=== PATIENT | female | born 1965 | race Caucasian/White ===

== ENCOUNTER 2020-02-15 06:31 | Emergency (ER) | payer MEDICARE, MEDICAID, SELFPAY ==
[2020-02-15 07:05] VITALS: BP 100/54; PULSE 70; RESP 16; TEMP 36.6; O2SAT 98; BMI 33.3
--- NOTE | 2020-02-15 07:06 | ED_ITS ---
HPI - General Adult General Chief complaint: Abdominal Pain Stated complaint: Abd pain Time Seen by Provider: 02/15/20 06:59 Source: patient Mode of arrival: ambulatory Limitations: no limitations History of Present Illness HPI narrative: patient comes to the emergency room complaining of abdominal pain for 2 weeks. Patient states she was seen yesterday at [place], patient states that she was told that her uterus is inflamed and is pushing all the way up her ribs . Patient states the worst pain is located at the left upper quadrant and left ribs. MD complaint: abdominal pain Related Data Previous Rx's Medication Instructions Recorded polyethylene glycol 3350 [Miralax] 17 g PO BID #119 g 02/15/20 Allergies Allergy/AdvReac Type Severity Reaction Status Date / Time fentanyl [FENTANYL] Allergy Unknown MIGRAINES Verified 02/15/20 07:30 ondansetron [From ZOFRAN] Allergy Unknown MAKES HER Verified 02/15/20 07:30 SICK oxycodone [From OxyContin] Allergy Unknown UNKNOWN Verified 02/15/20 07:30 Penicillins [PENICILLINS] Allergy Unknown RASH Verified 02/15/20 07:30 zolpidem [From AMBIEN] Allergy Unknown CAUSES Verified 02/15/20 07:30 HYPOTENSION Review of Systems Review of Systems: Constitutional : No Weight loss, No Fever, No Chills, No Night Sweats, No Fatigue, No Malaise ENT/Mouth : No Hearing loss, No Ear Pain, No Nasal Congestion, No Sinus Pain, No Hoarseness, No sore throat, No Rhinorrhea, No Swallowing Difficulty Eyes: No Eye Pain, No Swelling, No Redness, No Foreign Body, No Discharge, No Vision Changes Cardiovascular : No Chest Pain, No SOB, No Dyspnea on Exertion, No Orthopnea, No Edema, No Palpitations Respiratory : No Cough, No Sputum, No Wheezing, No Smoke Exposure, No Dyspnea Gastrointestinal : No Nausea, No Vomiting, No Diarrhea, No Constipation, right upper quadrant pain Genitourinary : no irregular bleeding, No Dysuria, No Urinary Frequency, No Hematuria, No Urinary Incontinence, No Urgency, No Flank Pain, No Urinary Flow Changes, No Hesitancy, states recently diagnosed with inflamed uterus Musculoskeletal : No joint pain, No Myalgias, No Joint Swelling Skin : No Skin Lesions, No rash Neuro : No Weakness, No Numbness, No Paresthesias, No Loss of Consciousness, No Dizziness, No Headache Psych : No Anxiety/Panic, No Depression, No SI/HI/AH/VH, No Social Issues, Heme/Lymph: No Bruising, No Bleeding,No Lymphadenopathy Endocrine : No Polyuria, No Polydipsia, No Temperature Intolerance [facility] Past Medical History Attestation statement: The following information was validated with the patient. Surgical History (Updated 02/15/20 @ 07:09 by Radha Dixon MD) History of left oophorectomy Hx of cholecystectomy Social History Social History Alcohol intake: never Smoking Status: Current every day smoker Use of substances other than those prescribed or required for medical reasons: No Advance Directives: Yes Advance Directives Information Provided: Yes Advance Directives on File: No Physical Exam Vital Signs: Vital Signs: Vital Signs Temp Pulse Resp BP Pulse Ox 02/15/20 08:32 16 02/15/20 07:48 66 16 113/68 02/15/20 07:05 97.8 F 70 16 100/54 L 98 Body Mass Index 33.3 Appearance: Alert. Oriented X3. No acute distress, anxious Eyes: Pupils equal, round and reactive to light. ENT: Pharynx normal. Neck: Normal inspection. Neck supple. No lymph nodes noted. No crepitus CVS: Normal heart rate and rhythm. Pulses normal. Normal S1 and S2 Respiratory: No respiratory distress. Breath sounds normal. No Wheezing. No rales Abdomen: Soft and tenderness in left flank, right upper quadrant, no pain on palpation over the bilateral lower quadrants or suprapubic tenderness Skin: Skin warm and dry. Normal skin color. Normal skin turgor. Extremities: No lower extremity edema. No lower extremity edema. No Lacerations. No Rash Neuro: Oriented X 3. No motor deficit. No sensory deficit. Moving all extermities. No slurred speech. Course Course Course Narrative: Patient states that she feels better, no longer having abdominal pain. I requested records from [facility], patient's CT scan from yesterday showed redundant colon with accessory loops in the right upper and lower quadrants containing a large amount of fecal material. CT scan of today showed a large amount of stool again. Medical Decision Making MDM Narrative Medical decision making narrative: patient's abdominal pain likely secondary to significant constipation. Lab Data Result diagrams: 02/15/20 07:44 02/15/20 07:44 Labs: Lab Results 02/15/20 02/15/20 02/15/20 Range/Units 07:44 07:44 08:36 WBC 9.7 (4.8-10.8) X10*3/uL RBC 4.42 (4.20-5.50) X10*6/uL Hgb 13.8 (12.0-16.0) g/dl Hct 42.1 (37-47) % MCV 95.2 (80-98) fL MCH 31.2 (27.0-33.0) pg MCHC 32.8 (31.0-35.0) g/dl RDW 14.1 (11.0-16.0) % Plt Count 200 (160-400) X10*3/uL MPV 9.7 (9.4-12.3) fL Immature Gran % (Auto) 0.9 H (0.0-0.4) % Neut % (Auto) 54.3 (45-73) % Lymph % (Auto) 36.9 (20-40) % [place] % (Auto) 6.4 (2-11) % Eos % (Auto) 1.1 (0-4) % Baso % (Auto) 0.4 (0-2) % Lymph # (Auto) 3.6 (1.2-4.9) X10*3/uL [place] # (Auto) 0.6 (0.1-1.2) X10*3/uL Eos # (Auto) 0.1 (0.0-0.4) X10*3/uL Baso # (Auto) 0.0 (0.0-0.2) X10*3/uL Abs Immat Gran (auto) 0.09 H (0.00-0.03) X10*3/uL Absolute Neuts (auto) 5.3 (2.0-8.3) X10*3/uL Absolute Nucleated RBC 0.000 (0.0-0.012) X10*3/uL Nucleated RBC % (auto) 0.0 (0.0-0.2) /100WBC Sodium 140 (135-145) mmol/L Potassium 4.4 (3.3-5.1) mmol/l Chloride 103 (96-108) mmol/L Carbon Dioxide 30 H (22-29) mmol/L Anion Gap 11 L (12-20) BUN 14 (9-16) mg/dL Creatinine 0.77 (0.5-1.4) mg/dL Estim Creat Clear Calc 94.0 Estimated GFR > 60 Random Glucose 84 (60-115) mg/dL Calcium 8.4 (8.4-10.2) mg/dL Total Bilirubin 0.3 (0.0-1.0) mg/dL Direct Bilirubin < 0.2 (0.0-0.5) mg/dL AST 18 (5-31) U/L ALT 21 (0-31) U/L Alkaline Phosphatase 70 (39-117) U/L Total Protein 6.1 L (6.5-8.0) g/dL Albumin 3.8 (3.5-5.0) g/dL Lipase 50 (8-78) U/L Urine Color YELLOW Urine Appearance CLEAR Urine pH 5.5 (5.0-8.0) Ur Specific [place] <= 1.005 (1.005-1.025) Urine Protein NEG (NEG-TRACE) MG/DL Urine Glucose (UA) NEG (NEG) MG/DL Urine Ketones NEG (NEG) MG/DL Urine Blood NEG (NEG) Urine Nitrite NEG (NEG) Ur Leukocyte Esterase NEG (NEG) Imaging Data CT of the abdomen: Radiologist's impression: Small nonobstructing right renal stone. Small bilateral renal cysts. Post cholecystectomy. Mild dilatation of the common bile duct. This may be normal postcholecystectomy. This could be correlated with liver function tests. Abnormal location of the cecum in the left mid abdomen. Question wall thickening of the distal stomach versus changes due to contraction/peristalsis. Discharge Plan Discharge Clinical Impression: Abdominal pain Qualifiers: Abdominal location: generalized Qualified Code(s): R10.84 - Generalized abdominal pain Constipation Qualifiers: Constipation type: unspecified constipation type Qualified Code(s): K59.00 - Constipation, unspecified Patient Disposition: Home, Self-Care Instructions: Constipation (ED), Abdominal Pain (ED) Additional Instructions: Please follow-up with your primary care physician tomorrow. If you have any worsening or new symptoms, please return to the emergency room or call 911 Prescriptions: New polyethylene glycol 3350 [Miralax] 17 gram/dose powder 17 g PO BID Qty: 119 RF: 0
--- NOTE | 2020-02-15 07:07 | CT_ITS ---
EXAMINATION: CT ABDOMEN AND PELVIS WITH CONTRAST CLINICAL INFORMATION: Abdominal pain COMPARISON: None TECHNIQUE: Multidetector volumetric images were obtained from the superior aspect of the liver through the pubic symphysis following administration 85 mL of Omnipaque 350 intravenous contrast. Sagittal and coronal reformatted images were obtained on the technologist's workstation. Oral contrast: Yes This CT examination was performed using dose optimization techniques as appropriate, variously including the following: *Automated exposure control *Adjustment of mA and/or kV according to patient size (this includes techniques or standardized protocols for targeted exams where dose is matched to indication/reason for exam; i.e. extremities or head) *Use of iterative reconstruction technique DLP: 628 mGy-cm FINDINGS: LUNG BASES: The visualized lung bases are unremarkable. LIVER, GALLBLADDER, AND BILIARY TREE: The liver is normal in shape, and attenuation. The liver is enlarged, right lobe measuring 20 cm in length. No focal hepatic lesion or intrahepatic biliary duct dilatation. The gallbladder has been removed. There is mild dilatation of the common bile duct measuring up to 1.3 cm. PANCREAS: There is a small calcification in the head of the pancreas. The pancreas is otherwise unremarkable. SPLEEN: Unremarkable. ADRENAL GLANDS: Unremarkable. KIDNEYS AND URETERS: There is a 3 3 mm stone in the upper pole of the right kidney. There are small bilateral renal cysts. BLADDER: Unremarkable. GASTROINTESTINAL TRACT: The cecum is located in the left mid abdomen. Small and large bowel is otherwise unremarkable. The appendix is unremarkable. There is question of mild wall thickening of the distal stomach versus changes due to contraction/peristalsis.. ABDOMINAL WALL: There is diastasis of the rectus muscles. LYMPH NODES: Normal. VASCULAR: Unremarkable. PELVIC VISCERA: Unremarkable. OSSEOUS STRUCTURES: Unremarkable. CT/CT abdomen pelvis w con IMPRESSION: Small nonobstructing right renal stone. Small bilateral renal cysts. Post cholecystectomy. Mild dilatation of the common bile duct. This may be normal postcholecystectomy. This could be correlated with liver function tests. Abnormal location of the cecum in the left mid abdomen. Question wall thickening of the distal stomach versus changes due to contraction/peristalsis.
[2020-02-15] MEDS: Ketorolac Tromethamine 30 MG/ML VIAL IVPUSH (07:31)
[2020-02-15 07:48] VITALS: BP 113/68; PULSE 66; RESP 16
[2020-02-15 07:49] LABS: MANUAL DIFF FLAG NO
[2020-02-15 07:55] LABS: Basophils Percent Auto 0.4 % (0-2); Eosinophils Absolute Auto 0.1 X10*3/uL (0.0-0.4); Eosinophils Percent Auto 1.1 % (0-4); Hematocrit 42.1 % (37-47); Hemoglobin 13.8 g/dl (12.0-16.0); Imm Gran Abs Auto 0.09 X10*3/uL (0.00-0.03); Imm Gran Pct Auto 0.9 % (0.0-0.4); Lymphocytes Absolute Auto 3.6 X10*3/uL (1.2-4.9); Lymphocytes Percent Auto 36.9 % (20-40); Mean Corpuscular HGB Conc 32.8 g/dl (31.0-35.0); Mean Corpuscular Hemoglobin 31.2 pg (27.0-33.0); Mean Corpuscular Volume 95.2 fL (80-98); Mean Platelet Volume 9.7 fL (9.4-12.3); Monocytes Absolute Auto 0.6 X10*3/uL (0.1-1.2); Monocytes Percent Auto 6.4 % (2-11); Neutrophils Absolute Auto 5.3 X10*3/uL (2.0-8.3); Neutrophils Percent Auto 54.3 % (45-73); Platelet Count 200 X10*3/uL (160-400); Red Blood Count 4.42 X10*6/uL (4.20-5.50); Red Cell Distribution Width 14.1 % (11.0-16.0); White Blood Count 9.7 X10*3/uL (4.8-10.8)
[2020-02-15 08:31] LABS: Alanine Aminotransferase 21 U/L (0-31); Albumin Level 3.8 g/dL (3.5-5.0); Alkaline Phosphatase 70 U/L (39-117); Anion Gap 11 (12-20); Aspartate Amino Transferase 18 U/L (5-31); Bilirubin Direct < 0.2 mg/dL (0.0-0.5); Bilirubin Total 0.3 mg/dL (0.0-1.0); Blood Urea Nitrogen 14 mg/dL (9-16); Calcium 8.4 mg/dL (8.4-10.2); Carbon Dioxide 30 mmol/L (22-29); Chloride 103 mmol/L (96-108); Estimated Glomerular Filt Rate > 60; Glucose Random 84 mg/dL (60-115); Lipase 50 U/L (8-78); Potassium 4.4 mmol/l (3.3-5.1); Sodium 140 mmol/L (135-145); Total Protein 6.1 g/dL (6.5-8.0)
[2020-02-15 08:32] VITALS: RESP 16
[2020-02-15] MEDS: Morphine Sulfate 4 MG/ML CARTRIDGE IVPUSH (08:32)
[2020-02-15 08:53] LABS: Glucose Urine UA NEG (NEG); Leukocyte Esterase Urine NEG (NEG); Nitrite Urine NEG (NEG); PH 5.5 (5.0-8.0); Specific Gravity - Urine <= 1.005 (1.005-1.025); Urine Blood NEG (NEG); Urine Ketones NEG (NEG); Urine Protein NEG (NEG-TRACE)
[2020-02-15 08:54] LABS: Color Urine YELLOW
[2020-02-15 08:55] LABS: Appearance Urine CLEAR
[2020-02-15] MEDS: iohexoL 350 MG/ML 100 ML INFUS..BTL 85 ML IV (09:07)
[2020-02-15 10:00] VITALS: BP 120/57; PULSE 68; RESP 16; TEMP 36.7
== END 2020-02-15 10:52 | disposition home or self-care (01) ==
PROVIDERS: Emergency Provider Emergency Medicine; PCP Internal Medicine
DX: R10.12 Left upper quadrant pain (principal); K59.00 Constipation, unspecified; R10.84 Generalized abdominal pain; F17.200 Nicotine dependence, unspecified, uncomplicated; Z71.6 Tobacco abuse counseling
CPT/HCPCS: 36415; 74177; 80048; 80076; 81003; 83690; 85025; 96374; 96375; 99284; J1885; J2270

== ENCOUNTER 2020-05-09 11:43 | Emergency (ER) | payer MEDICARE, MEDICAID, SELFPAY ==
[2020-05-09 11:57] VITALS: BP 114/67; BP 115/66; PULSE 69; PULSE 75; RESP 18; TEMP 36.6; O2SAT 96; O2SAT 97; BMI 33.3
--- NOTE | 2020-05-09 12:05 | XR_ITS ---
EXAMINATION: XR RIBS, RIGHT CLINICAL INFORMATION: Rib pain COMPARISON: None TECHNIQUE: Frontal view of the chest and 3 views right ribs are obtained for a total of 4 views. FINDINGS: There are mildly displaced fractures right lateral fifth and sixth ribs with associated smooth pleural reaction. No bony destructive process. There is no pneumothorax. No airspace consolidation or effusion. The cardiac and hilar and mediastinal contours are unremarkable. XR/XR ribs RT min 3V w CXR1V IMPRESSION: 1. Mildly displaced fractures right lateral fifth and sixth ribs with smooth pleural reaction. 2. No pneumothorax, airspace consolidation, or effusion.
[2020-05-09] MEDS: Morphine Sulfate 2 MG/ML CARTRIDGE IVPUSH (13:15)
[2020-05-09 13:16] VITALS: BP 128/52; PULSE 64; RESP 18; O2SAT 99
--- NOTE | 2020-05-09 13:17 | PC.NURSE ---
GRIMACING AND CRYING WITH ALL MOVEMENT. PT HAS SHALLOW RESP AND FEEBLE COUGH D/T PAIN. PNEUMONIA PREVENTION COVERED. LS CTA. SKIN PWD. NO BRUISING NOTED ON ARMS AND THORAX. STEADY ON FEET. DENIES HARMFUL ENVIRONEMNT AT HOME.
--- NOTE | 2020-05-09 13:35 | PC.NURSE ---
pt calming. morphine having good effect. resp remains shallow.
--- NOTE | 2020-05-09 13:55 | ED.GENADULT ---
HPI - General Adult General Chief complaint: General Medical Stated complaint: R RIB PAIN,NO INJURY Time Seen by Provider: 05/09/20 12:38 Source: patient Mode of arrival: ambulatory History of Present Illness HPI narrative: 54-year-old female with a past medical history of cholecystectomy, oophorectomy, previous left sided rib fracture presenting to the ED from PCPs office for right-sided rib pain x1 week. Patient denies known falls, trauma, injury. Reports pain with movement and deep breathing. Reports mild shortness of breath secondary to pain. Denies fever, chills, cough, LE edema, history blood clots Onset (ago): week(s) Related Data Previous Rx's Medication Instructions Recorded polyethylene glycol 3350 [Miralax] 17 g PO BID #119 g 02/15/20 acetaminophen-codeine 1 tab PO Q8H PRN 3 Days #9 tab 05/09/20 lidocaine [Lidoderm] 1 patch TOPICAL DAILY PRN #30 ea 05/09/20 MDD remove after 12 hours naproxen 500 mg PO BID PRN 10 Days #20 tab 05/09/20 Allergies Allergy/AdvReac Type Severity Reaction Status Date / Time fentanyl [FENTANYL] Allergy Unknown MIGRAINES Verified 02/15/20 07:30 ondansetron [From ZOFRAN] Allergy Unknown MAKES HER Verified 02/15/20 07:30 SICK oxycodone [From OxyContin] Allergy Unknown UNKNOWN Verified 02/15/20 07:30 Penicillins [PENICILLINS] Allergy Unknown RASH Verified 02/15/20 07:30 zolpidem [From AMBIEN] Allergy Unknown CAUSES Verified 02/15/20 07:30 HYPOTENSION Review of Systems Review of Systems: Constitutional: No Weight loss, No Fever, No Chills Cardiovascular: + Chest wall Pain, + SOB, no edema, no palpitations Respiratory: No Cough, No Sputum, No Wheezing Gastrointestinal: No Nausea, No Vomiting, No Diarrhea, No Constipation, No Abdominal pain Musculoskeletal: No joint pain, No Myalgias, No Joint Swelling Skin: No Skin Lesions, No rash Neuro: No Weakness, No Numbness, No Paresthesias Yes all other systems are reviewed and are negative PMFSH Past Medical History Attestation statement: The following information was validated with the patient. Surgical History History of left oophorectomy Hx of cholecystectomy Social History Social History Alcohol intake: never Smoking Status: Current every day smoker Use of substances other than those prescribed or required for medical reasons: No Advance Directives: No Advance Directives Information Provided: Yes Physical Exam Vital Signs: Vital Signs: Last Vital Signs Temp 97.9 F 05/09/20 11:57 Pulse 64 05/09/20 13:16 Resp 18 05/09/20 13:16 BP 128/52 L 05/09/20 13:16 Pulse Ox 99 05/09/20 13:16 Body Mass Index 33.3 Const: Other: In pain General: healthy appearing Orientation/consciousness: patient oriented x3 Limitations: no limitations HENMT: Head: Yes normal to inspection Ears: hearing grossly normal bilaterally General nose exam: Normal external nose present Face and sinus: Yes normal facial exam Eyes: General: appearance normal, both eyes and all related structures EOM: EOMs intact bilaterally Neck: Neck: Yes normal visual inspection Chest: Other: Tenderness to palpation diffusely over right-sided anteriorolateral and posterior ribs Chest palpation & inspection: normal inspection of the chest, no crepitus and tenderness Resp: Effort & Inspection: normal respiratory effort and no stridor Auscultation: clear to auscultation bilaterally, no crackles, no rales, no rhonchi and no wheezes Cardio: Rate: regular rate Heart sounds: S1 normal heart sound present and S2 normal heart sound present GI: Inspection: Yes normal to inspection Palpation (GI): Soft to palpation, nontender, no guarding and not rigid Skin: Rashes: no rashes Wounds: no wounds Neuro: General: patient oriented x3 Extrem: General: Yes normal to inspection Course Course Course Narrative: XR ribs RT min 3V w CXR1V IMPRESSION: 1. Mildly displaced fractures right lateral fifth and sixth ribs with smooth pleural reaction. 2. No pneumothorax, airspace consolidation, or effusion >> patient's pain likely from 2 rib fractures a rather than PE. Had lengthy discussion with patient pertaining to safety/abuse or EtOH/ substance abuse and falls, all of which she denies, denies known reason why she has rib fractures. Discussed with patient she needs close follow-up with her primary care doctor, and can always return to the emergency department. She verbalized understanding feel safe for discharge home Medical Decision Making MDM Narrative Medical decision making narrative: 54-year-old female with a past medical history of cholecystectomy, oophorectomy, previous left sided rib fracture presenting to the ED from PCPs office for right-sided rib pain x1 week. On exam VSS, NAD/nontoxic-appearing, rib tenderness elicited on exam. Concern for fracture vs costochondritis vs ?PNA or PE. Lower concern for ACS Plan: Initial x-rays, labs if unremarkable Discharge Plan Discharge Clinical Impression: Multiple rib fractures Qualifiers: Encounter type: subsequent encounter Fracture type: closed Laterality: right Fracture healing: with routine healing Qualified Code(s): S22.41XD - Multiple fractures of ribs, right side, subsequent encounter for fracture with routine healing Patient Disposition: Home, Self-Care Instructions: Rib Fracture (ED) Additional Instructions: You have a right 5th and 6th rib fracture Naproxen as an anti-inflammatory/pain medication, take with food No Lidoderm patches or numbing patches, apply to the painful area Tylenol with codeine is an opiate pain medication, take only when pain is severe for the next 3 days You need to have close follow-up with her primary care doctor Do not drink alcohol or take drugs If you do not feel safe at home return to the emergency department Prescriptions: New lidocaine [Lidoderm] 5 % adhesive patch,medicated 1 patch topical DAILY MDD remove after 12 hours PRN (Reason: pain) Qty: 30 RF: 0 naproxen 500 mg tablet 500 mg PO BID PRN (Reason: pain) 10 Days Qty: 20 RF: 0 acetaminophen-codeine 300-30 mg tablet 1 tab PO Q8H PRN (Reason: pain, severe) 3 Days Qty: 9 RF: 0 No Action polyethylene glycol 3350 [Miralax] 17 gram/dose powder 17 g PO BID Qty: 119 RF: 0 Referrals: Brina Hunt MD [Primary Care Provider] - 2 days
== END 2020-05-09 14:23 | disposition home or self-care (01) ==
PROVIDERS: Emergency Provider Emergency Medicine; PCP Internal Medicine
DX: S22.41XD Multiple fractures of ribs, right side, subsequent encounter for fracture with routine healing (principal); W19.XXXD Unspecified fall, subsequent encounter; Z91.81 History of falling
CPT/HCPCS: 71101; 96374; 99284; J2270

== ENCOUNTER 2020-10-28 10:40 | Emergency (ER) | payer MEDICARE, MEDICAID, SELFPAY ==
--- NOTE | ~2020-10-28 | XR_ITS ---
EXAMINATION: XR chest 2V CLINICAL INFORMATION: Pain COMPARISON: Prior chest x-ray 05/09/2020 TECHNIQUE: XR chest 2V Lungs and Valerie: No radiographic evidence of acute infiltrates or failure. Right apical pleural thickening probably pleural capping. Mild diffuse increased interstitial lung markings nonspecific. Pleura: Normal. Costophrenic angles are sharp. No pneumothorax. Heart: The heart is normal in size. Mediastinum: The mediastinum is within normal limits.. Bones: Skeletal structures included are normal for patient's age. XR/XR chest 2V IMPRESSION: No radiographic evidence of pneumonia. Nonspecific mild increased interstitial lung marking. Right apical pleural-based thickening probably pleural capping. If patient has no prior chest x-ray would recommend correlation with follow-up in 6 weeks.
[2020-10-28 10:55] VITALS: BP 119/60; PULSE 76; RESP 18; TEMP 36; O2SAT 98; BMI 33.3
--- NOTE | 2020-10-28 11:20 | ED.GENADULT ---
HPI - General Adult General Chief complaint: Back Pain/Injury Stated complaint: RIB PAIN Time Seen by Provider: 10/28/20 11:20 Source: patient Limitations: no limitations History of Present Illness HPI narrative: This is a 55-year-old female who alleges a history of frequent rib fractures, states she has had test such as bone density studies to find out why she breaks rib so easily. She states she has had left sided pain from below her axilla around to her breast area for few days which came on at rest, is worse with taking a deep breath or with movement. She denies any trauma says that previously the rib fractures have not been associated with any significant trauma. She feels short of breath only when she is in extreme pain. Denies any dizziness. She denies any abdominal pain. She denies anterior chest pain. Pain is moderately severe, sharp Related Data Previous Rx's Medication Instructions Recorded polyethylene glycol 3350 [Miralax] 17 g PO BID #119 g 02/15/20 acetaminophen-codeine 1 tab PO Q8H PRN 3 Days #9 tab 05/09/20 lidocaine [Lidoderm] 1 patch TOPICAL DAILY PRN #30 ea 05/09/20 MDD remove after 12 hours ibuprofen 400 mg PO Q6H PRN #30 tab 10/28/20 tramadol 50 - 100 mg PO Q6H PRN #20 tab 10/28/20 Allergies Allergy/AdvReac Type Severity Reaction Status Date / Time fentanyl [FENTANYL] Allergy Unknown MIGRAINES Verified 02/15/20 07:30 ondansetron [From ZOFRAN] Allergy Unknown MAKES HER Verified 02/15/20 07:30 SICK oxycodone [From OxyContin] Allergy Unknown UNKNOWN Verified 02/15/20 07:30 Penicillins [PENICILLINS] Allergy Unknown RASH Verified 02/15/20 07:30 zolpidem [From AMBIEN] Allergy Unknown CAUSES Verified 02/15/20 07:30 HYPOTENSION Review of Systems Review of Systems: Yes all other systems are reviewed and are negative Constitutional: Constitutional: Reports as per HPI and Denies fever(s) Eyes: Eyes: Reports as per HPI and Reports no additional eye complaints ENT: Reports system reviewed and no additional complaints, except as documented, Reports as per HPI, Denies nasal congestion, Denies nasal discharge and Denies sore throat Cardiovascular: Cardiovascular: Reports as per HPI, Denies chest pain and Denies dyspnea Respiratory: Respiratory: Reports as per HPI, Denies cough and Denies dyspnea Gastrointestinal: Gastrointestinal: Reports as per HPI, Denies abdominal pain, Denies diarrhea and Denies vomiting Genitourinary: Genitourinary: Reports as per HPI, Denies hematuria, Denies urinary frequency and Denies dysuria Musculoskeletal: Musculoskeletal: Denies numbness Comments: Left chest wall pain in the area of lateral chest below the axilla and left breast Integumentary/Breasts: Skin/Breast: Reports as per HPI and Denies rash Neurologic: Reports as per HPI, Denies focal weakness, Denies numbness and Denies Sensory deficit (Neuro) Psychiatric: Psychiatric: Reports no additional psychiatric complaints and Reports as per HPI Endocrine: Endocrine: Reports no additional endocrine complaints and Reports as per HPI Hematologic/Lymphatic: Hematologic/Lymphatic: Reports no additional hematologic/lymphatic complaints, Reports as per HPI and Reports other (No peripheral edema) [facility] Past Medical History Surgical History History of left oophorectomy Hx of cholecystectomy Social History Social History Alcohol intake: never Advance Directives: Yes Advance Directives Information Provided: Yes Advance Directives on File: No Physical Exam Vital Signs: Vital Signs: Last Vital Signs Temp 96.8 F 10/28/20 10:55 Pulse 76 10/28/20 10:55 Resp 18 10/28/20 10:55 BP 119/60 10/28/20 10:55 Pulse Ox 98 10/28/20 10:55 Body Mass Index 33.3 Const: General: cooperative, no acute distress and alert Orientation/consciousness: patient oriented x3 HENMT: Head: Yes normal to inspection Eyes: General: appearance normal, both eyes and all related structures Eyelids: Yes eyelids normal Conjunctivae: conjunctivae normal Pupils: Equal, round and reactive pupils present Neck: Neck: Yes normal visual inspection and Yes supple Chest: Chest palpation & inspection: normal inspection of the chest Breast/axilla inspection: Other (Tender just to light palpation left lateral chest, out of proportion to PE) Resp: Effort & Inspection: normal respiratory effort Auscultation: clear to auscultation bilaterally Cardio: Rate: regular rate Rhythm: regular rhythm Heart sounds: S1 normal heart sound present, S2 normal heart sound present, no gallops, no murmurs and no rubs GI: Palpation (GI): Soft to palpation, nontender and Other GI palpation findings present (Non-distended) Auscultation: normal bowel sounds Skin: General skin exam: no rashes or lesions noted Neuro: General: patient oriented x3, no focal motor deficits and CN's II-XI intact bilaterally Cranial nerves: Yes Equal, round and reactive pupils present Cognition (Neuro): normal cognition Motor exam (neuro): 5/5 motor strength present throughout Sensory Exam: No Sensory deficit (Neuro) Extrem: General: Yes normal to inspection and Yes no pedal edema Psych: Appearance: grossly normal Affect: normal affect Medical Decision Making MDM Narrative Medical decision making narrative: Review of records reveals that the patient had been seen here in April and had a chest x-ray which showed 2 right-sided rib fractures. There are no other visits or imaging studies showing fractures. X-ray today shows no evidence of left rib fracture or other acute pathology in the area of the patient's pain. No clinical evidence of shingles. Patient seemed to have an exaggerated response to light palpation. Patient states she has been seen at another hospital for other rib fractures. Prescribe the patient limited number of tramadol, as well as ibuprofen and the patient hand follow-up with her primary care physician. Imaging Data Chest x-ray: Attestation: I personally reviewed and interpreted this imaging study as follows: My impression: Chest x-ray two view showed no pleural effusion, pneumothorax, or apparent left-sided rib fractures. Discharge Plan Discharge Clinical Impression: Acute chest wall pain Patient Disposition: Home, Self-Care Instructions: Chest Wall Pain (ED) Additional Instructions: Make sure to take a deep breath every 20-30 minutes while awake her to keep her lungs fully inflated. Follow-up with her primary care physician in the coming week for re-evaluation. Return for any new or worsened symptoms such as shortness of breath, cough or fever Prescriptions: New ibuprofen 400 mg tablet 400 mg PO Q6H PRN (Reason: pain) Qty: 30 RF: 0 tramadol 50 mg tablet 50 - 100 mg PO Q6H PRN (Reason: pain) Qty: 20 RF: 0 Discontinued naproxen 500 mg tablet 500 mg PO BID PRN (Reason: pain) 10 Days Qty: 20 RF: 0 No Action lidocaine [Lidoderm] 5 % adhesive patch,medicated 1 patch topical DAILY MDD remove after 12 hours PRN (Reason: pain) Qty: 30 RF: 0 acetaminophen-codeine 300-30 mg tablet 1 tab PO Q8H PRN (Reason: pain, severe) 3 Days Qty: 9 RF: 0 polyethylene glycol 3350 [Miralax] 17 gram/dose powder 17 g PO BID Qty: 119 RF: 0 Interventions: ED Discharge Assessment Last Done: 10/28/20 12:13 Discharge Date/Time: 10/28/20 12:13
[2020-10-28] MEDS: Ibuprofen 400 MG TABLET PO (12:10)
[2020-10-28] MEDS: traMADoL HCL 50 MG TABLET PO (12:10)
== END 2020-10-28 12:13 | disposition home or self-care (01) ==
PROVIDERS: Emergency Provider Emergency Medicine; PCP Internal Medicine
DX: R07.89 Other chest pain (principal)
CPT/HCPCS: 71046; 99283

== ENCOUNTER 2021-08-16 11:31 | Outpatient (REF) | payer OTHER, MEDICAID, SELFPAY ==
--- NOTE | ~2021-08-16 | XR_ITS ---
EXAMINATION: XR HAND, LEFT CLINICAL INFORMATION: Left hand pain COMPARISON: None TECHNIQUE: PA, lateral, and oblique views of the left hand. FINDINGS: Visualized portions of the distal radius and ulna demonstrate no fracture. There is mild ulnar negative variance. Carpal rows are maintained. No carpal bone fracture. No metacarpal or phalangeal fracture. Minimal degenerative changes of a few scattered IP joints. XR/XR hand LT 2V IMPRESSION: No fracture.
== END 2021-08-16 11:32 | disposition home or self-care (01) ==
LOC: HO.XRAY 11:31
PROVIDERS: PCP Internal Medicine; Visit Provider Family Medicine
DX: M79.642 Pain in left hand (principal)
CPT/HCPCS: 73120

== ENCOUNTER 2021-09-19 13:40 | Emergency (ER) | payer OTHER, MEDICAID, SELFPAY ==
--- NOTE | ~2021-09-19 | XR_ITS ---
EXAMINATION: AP PELVIS AND LEFT HIP. AP AND LATERAL THORACIC SPINE. THREE-VIEW LEFT SHOULDER. CLINICAL INFORMATION: Fall with pain COMPARISON: None TECHNIQUE: AP pelvis and 2 views of the left hip. AP and lateral thoracic spine. Three-view left shoulder. FINDINGS: AP and lateral views of the thoracic spine do not demonstrate any evidence of acute fracture. There is mild multilevel disc space narrowing and marginal spurring. Pedicles appear intact. No abnormal paraspinal line bulge is seen. AP film of the pelvis does not demonstrate any evidence of acute fracture or diastases. No significant sacroiliac joint abnormalities appreciated. Hip joint spaces are maintained. There appears be partial sacralization of L5 with spina bifida occulta. There is some increased density about the facet joint of L5-S1 which may be related to some degree of facet arthropathy. 2 views of the left hip do not demonstrate any evidence of acute fracture or dislocation. No destructive bony lesions are identified. Joint space is maintained. 3 views of the left shoulder demonstrate a comminuted fracture of the cervical neck and involving the greater tuberosity. There is some mild lateral displacement of the inferior aspect of the left greater tuberosity. No dislocation is evident. No widening of the coracoclavicular space is seen. XR/XR hip LT w PEL1V IMPRESSION: Comminuted proximal left humeral fracture involving the surgical neck and greater tuberosity. No dislocation. No evidence of acute fracture or diastases of the pelvis. No significant left hip abnormality appreciated. No thoracic spine fracture appreciated.
--- NOTE | ~2021-09-19 | XR_ITS ---
EXAMINATION: AP PELVIS AND LEFT HIP. AP AND LATERAL THORACIC SPINE. THREE-VIEW LEFT SHOULDER. CLINICAL INFORMATION: Fall with pain COMPARISON: None TECHNIQUE: AP pelvis and 2 views of the left hip. AP and lateral thoracic spine. Three-view left shoulder. FINDINGS: AP and lateral views of the thoracic spine do not demonstrate any evidence of acute fracture. There is mild multilevel disc space narrowing and marginal spurring. Pedicles appear intact. No abnormal paraspinal line bulge is seen. AP film of the pelvis does not demonstrate any evidence of acute fracture or diastases. No significant sacroiliac joint abnormalities appreciated. Hip joint spaces are maintained. There appears be partial sacralization of L5 with spina bifida occulta. There is some increased density about the facet joint of L5-S1 which may be related to some degree of facet arthropathy. 2 views of the left hip do not demonstrate any evidence of acute fracture or dislocation. No destructive bony lesions are identified. Joint space is maintained. 3 views of the left shoulder demonstrate a comminuted fracture of the cervical neck and involving the greater tuberosity. There is some mild lateral displacement of the inferior aspect of the left greater tuberosity. No dislocation is evident. No widening of the coracoclavicular space is seen. XR/XR thoracic spine 2V IMPRESSION: Comminuted proximal left humeral fracture involving the surgical neck and greater tuberosity. No dislocation. No evidence of acute fracture or diastases of the pelvis. No significant left hip abnormality appreciated. No thoracic spine fracture appreciated.
--- NOTE | ~2021-09-19 | XR_ITS ---
EXAMINATION: AP PELVIS AND LEFT HIP. AP AND LATERAL THORACIC SPINE. THREE-VIEW LEFT SHOULDER. CLINICAL INFORMATION: Fall with pain COMPARISON: None TECHNIQUE: AP pelvis and 2 views of the left hip. AP and lateral thoracic spine. Three-view left shoulder. FINDINGS: AP and lateral views of the thoracic spine do not demonstrate any evidence of acute fracture. There is mild multilevel disc space narrowing and marginal spurring. Pedicles appear intact. No abnormal paraspinal line bulge is seen. AP film of the pelvis does not demonstrate any evidence of acute fracture or diastases. No significant sacroiliac joint abnormalities appreciated. Hip joint spaces are maintained. There appears be partial sacralization of L5 with spina bifida occulta. There is some increased density about the facet joint of L5-S1 which may be related to some degree of facet arthropathy. 2 views of the left hip do not demonstrate any evidence of acute fracture or dislocation. No destructive bony lesions are identified. Joint space is maintained. 3 views of the left shoulder demonstrate a comminuted fracture of the cervical neck and involving the greater tuberosity. There is some mild lateral displacement of the inferior aspect of the left greater tuberosity. No dislocation is evident. No widening of the coracoclavicular space is seen. XR/XR shoulder LT min 2V IMPRESSION: Comminuted proximal left humeral fracture involving the surgical neck and greater tuberosity. No dislocation. No evidence of acute fracture or diastases of the pelvis. No significant left hip abnormality appreciated. No thoracic spine fracture appreciated.
[2021-09-19 13:51] VITALS: BP 107/63; PULSE 92; RESP 18; TEMP 36.6; O2SAT 98; BMI 30.7
--- NOTE | 2021-09-19 16:21 | ED_ITS ---
HPI - Extremity Problem General Chief complaint: Extremity Injury, Upper Stated complaint: fall l shoulder broken in pain Time Seen by Provider: 09/19/21 15:59 Source: patient Mode of arrival: ambulatory Limitations: no limitations History of Present Illness HPI Narrative: 56-year-old female here with reports of left shoulder pain, left hip pain, upper back pain after fall which occurred Friday. Patient tells me she tripped falling backward hitting her left shoulder and left hip. She denies hitting her head or loss of consciousness. She had at that time she was in [place]. She went to a hospital there and had x-rays that showed a left shoulder fracture. She was placed in a sling and given Vicodin for home for pain control. Patient comes here today for persistent pain not controlled with Vicodin at home. She did called doing a Orthopedics today and is waiting for call back to be seen. Patient denies any numbness, tingling in the extremity. She also is complaining of some upper back pain and left hip pain and tells me that she did not have these x-rayed when she was seen in the ER in [place]. No neck pain, abdominal pain, chest pain, head pain. Related Data Home Medications Medication Instructions Recorded Confirmed gabapentin 300 mg capsule 300 mg PO BID 08/16/21 hydromorphone 4 mg tablet 4 mg PO BID PRN tab 08/16/21 Previous Rx's Medication Instructions Recorded polyethylene glycol 3350 17 17 g PO BID #119 g 02/15/20 gram/dose oral powder (Miralax) lidocaine 5 % topical patch 1 patch TOPICAL DAILY PRN #30 ea 05/09/20 (Lidoderm) MDD remove after 12 hours ibuprofen 400 mg tablet 400 mg PO Q6H PRN #30 tab 10/28/20 ibuprofen 800 mg tablet 800 mg PO Q8H PRN 14 Days #42 tab 08/16/21 oxycodone 5 mg tablet 5 mg PO Q4H PRN #12 tab 09/19/21 Allergies Allergy/AdvReac Type Severity Reaction Status Date / Time fentanyl [FENTANYL] Allergy Unknown MIGRAINES Verified 08/16/21 10:39 ondansetron [From ZOFRAN] Allergy Unknown MAKES HER Verified 08/16/21 10:39 SICK oxycodone [From OxyContin] Allergy Unknown UNKNOWN Verified 08/16/21 10:39 Penicillins [PENICILLINS] Allergy Unknown RASH Verified 08/16/21 10:39 zolpidem [From AMBIEN] Allergy Unknown CAUSES Verified 08/16/21 10:39 HYPOTENSION Review of Systems Review of Systems: Yes all other systems are reviewed and are negative Constitutional: Constitutional: Reports no additional constitutional complaints, Denies body ache(s), Denies chills, Denies fever(s), Denies headache(s) and Denies weakness Eyes: Eyes: Reports no additional eye complaints and Denies change in vision ENT: Reports system reviewed and no additional complaints, except as do cumented, Denies dizziness, Denies headache(s), Denies nasal congestion, Denies nasal discharge and Denies neck pain Cardiovascular: Cardiovascular: Reports no additional cardiovascular complaints, Denies chest pain, Denies leg edema and Denies dyspnea Respiratory: Respiratory: Reports no additional respiratory complaints, Denies cough and Denies dyspnea Gastrointestinal: Gastrointestinal: Reports no additional gastrointestinal complaints, Denies abdominal pain, Denies diarrhea, Denies nausea and Denies vomiting Genitourinary: Genitourinary: Reports no additional female genitourinary complaints and Denies urinary incontinence Musculoskeletal: Musculoskeletal: Reports no additional musculoskeletal complaints, Reports back pain, Reports arthralgias, Denies joint swelling, Reports limited range of motion, Denies neck pain, Denies numbness and Denies tingling Integumentary/Breasts: Skin/Breast: Reports system reviewed and no additional complaints, except as docu and Denies rash Neurologic: Reports system reviewed and no additional complaints, except as documented, Denies Abnormal speech present, Denies dizziness, Denies headache(s), Denies numbness, Denies tingling and Denies weakness [facility] Past Medical History Attestation statement: The following information was validated with the patient. Source: old records reviewed and nursing notes reviewed Surgical History History of left oophorectomy Hx of cholecystectomy Social History Social History Alcohol intake: never Advance Directives: No Advance Directives Information Provided: No Physical Exam Vital Signs: Vital Signs: Last Vital Signs Temp 97.6 F 09/19/21 17:55 Pulse 73 06/01/22 17:55 Resp 16 09/19/21 17:55 BP 127/63 09/19/21 17:55 Pulse Ox 93 09/19/21 17:55 BMI result Body Mass Index 30.7 Const: General: cooperative, healthy appearing, comfortable and no acute distress Orientation/consciousness: patient oriented x3 Limitations: no limitations HEENT: Head: Yes normal to inspection, No Weeks's sign and No raccoon eyes Ears: hearing grossly normal bilaterally and TM's normal bilaterally General nose exam: Normal external nose present Face and sinus: Yes normal facial exam Mouth: Normal oral and palatal mucosa present Throat: Yes posterior oropharynx normal Eyes: General: appearance normal, both eyes and all related structures Pupils: Equal, round and reactive pupils present Neck: Other: No cervical tenderness, step-offs deformities Neck: Yes normal visual inspection, Yes full ROM and Yes no lymphadenopathy Chest: Chest palpation & inspection: normal inspection of the chest Resp: Effort & Inspection: normal respiratory effort Auscultation: clear to auscultation bilaterally Cardio: Rate: regular rate Rhythm: regular rhythm Peripheral pulses: Peripheral pulses 2+ throughout GI: Inspection: Yes normal to inspection Palpation (GI): Soft to palpation and nontender Auscultation: normal bowel sounds : General: Yes no CVA tenderness Back/Spine/Pelvis: Other: Tenderness to the midthoracic spine with no step-offs or deformities. There is some bruising over the left posterior shoulder with tenderness. Back: no CVA tenderness Thoracic/Lumbar Spine: thoracic and lumbar spine normal to in spection Skin: General skin exam: no rashes or lesions noted Neuro: General: patient oriented x3, moves all extremities, no focal motor deficits and normal sensation to monofilament Cranial nerves: Yes Equal, round and reactive pupils present Cognition (Neuro): normal cognition Speech: No Abnormal speech present Gait exam (Neuro): Normal gait present Motor exam (neuro): 5/5 motor strength present throughout Sensory Exam: Normal double simultaneous stimulation for sensation Extrem: Other: Tenderness to the left shoulder over the proximal humerus with limited abduction due to pain. There is ecchymosis over the inner aspect of the left arm and the soft tissue area. The compartments are soft and compressible. There are distal radial and ulnar pulses. Patient is guarding the extremity. Exam is limited due to pain. Patient also complaining of left lateral hip pain on exam with no ecchymosis noted. She has full range of motion of the hip with no difficulty. She is ambulatory. General: Yes normal to inspection Course Course Course Narrative: 56-year-old female here with mechanical fall on Friday. Seen at an emergency room in [place] and diagnosed with a left shoulder fracture. Here with persistent pain despite taking Vicodin at home. Patient also complaining of upper back pain and left hip pain from the fall. She does have images with her but I am unable to visualize these images on our system. Therefore I will check x-rays today of shoulder, hip and back. Will provide analgesia and reassess Reevaluation(s) Reevaluation #1: Post x-rays pain now back although was improved initially. Patient has allergy listed to oxycontin but can take oxycodone. Will give PO oxycodone/APAP and re- assess. Time: 18:00 Reevaluation #2: Pain is improved. X-rays show no acute bony abnormality in the hip, pelvis or thoracic spine. The shoulder x-ray shows a comminuted proximal left humeral fracture involving the surgical neck and greater tuberosity. No dislocation. Arminda toro has a sling already in place. I did discuss the case with Beatriz from Orthopedics. Patient can follow-up with her outpatient. Reviewed rice. Reviewed worrisome signs and symptoms of when to return to the emergency department. Comfortable discharge home. Time: 19:45 MDM - Extremity (Nontraumatic) Medical Records Attestation: I reviewed the patient's medical records. Imaging Data pelvis/left hip/left shoulder/thoracic spine x-ray: Attestation: I personally reviewed and interpreted this imaging study as follows: Radiologist's impression: TECHNIQUE: AP pelvis and 2 views of the left hip. AP and lateral thoracic spine. Three-view left shoulder.? FINDINGS: AP and lateral views of the thoracic spine do not demonstrate any evidence of acute fracture. There is mild multilevel disc space narrowing and marginal spurring. Pedicles appear intact. No abnormal paraspinal line bulge is seen. AP film of the pelvis does not demonstrate any evidence of acute fracture or diastases. No significant sacroiliac joint abnormalities appreciated. Hip joint spaces are maintained. There appears be partial sacralization of L5 with spina bifida occulta. There is some increased density about the facet joint of L5-S1 which may be related to some degree of facet arthropathy. 2 views of the left hip do not demonstrate any evidence of acute fracture or dislocation. No destructive bony lesions are identified. Joint space is maintained. 3 views of the left shoulder demonstrate a comminuted fracture of the cervical neck and involving the greater tuberosity. There is some mild lateral displacement of the inferior aspect of the left greater tuberosity. No dislocation is evident. No widening of the coracoclavicular space is seen. XR/XR hip LT w PEL1V IMPRESSION: Comminuted proximal left humeral fracture involving the surgical neck and greater tuberosity. No dislocation. ? No evidence of acute fracture or diastases of the pelvis. ? No significant left hip abnormality appreciated. ? No thoracic spine fracture appreciated. Discharge Plan Discharge Clinical Impression: Left humeral fracture Patient Disposition: Home, Self-Care Instructions: Arm Fracture in Adults (ED) Additional Instructions: Use the sling for comfort Take ibuprofen 3 times daily with food Take Tylenol as well Take oxycodone as needed Ice to the area Prescriptions: New oxycodone 5 mg tablet 5 mg PO Q4H PRN (Reason: pain) Qty: 12 0RF No Action lidocaine [Lidoderm] 5 % adhesive patch,medicated 1 patch topical DAILY MDD remove after 12 hours PRN (Reason: pain) Qty: 30 0RF Rx Instructions: leave on most painful area for up to 12 hrs polyethylene glycol 3350 [Miralax] 17 gram/dose powder 17 g PO BID Qty: 119 0RF ibuprofen 400 mg tablet 400 mg PO Q6H PRN (Reason: pain) Qty: 30 0RF hydromorphone 4 mg tablet 4 mg PO BID PRN0RF gabapentin 300 mg capsule 300 mg PO BID 0RF ibuprofen 800 mg tablet 800 mg PO Q8H PRN (Reason: pain) 14 Days Qty: 42 0RF Referrals: [facility] [facility] [place] [facility] [Provider Group] - 1 week (call for appointmen t) Interventions: ED Discharge Assessment Last Done: 09/19/21 19:55 Discharge Date/Time: 09/19/21 19:56
[2021-09-19] MEDS: Ketorolac Tromethamine 60 MG/2 ML VIAL IM (16:40)
[2021-09-19 17:55] VITALS: BP 127/63; PULSE 73; RESP 16; TEMP 36.4; O2SAT 93
[2021-09-19] MEDS: Acetaminophen 325 MG TABLET 975 MG PO (18:15)
[2021-09-19] MEDS: oxyCODONE HCl Immed Release 5 MG TABLET 10 MG PO (18:15)
== END 2021-09-19 19:56 | disposition home or self-care (01) ==
PROVIDERS: Emergency Provider Emergency Medicine
DX: S42.212D Unspecified displaced fracture of surgical neck of left humerus, subsequent encounter for fracture with routine healing (principal); S42.252D Displaced fracture of greater tuberosity of left humerus, subsequent encounter for fracture with routine healing; W01.0XXD Fall on same level from slipping, tripping and stumbling without subsequent striking against object, subsequent encounter; M25.552 Pain in left hip; M54.6 Pain in thoracic spine
CPT/HCPCS: 72070; 73030; 73502; 96372; 99283; 99284; J1885

== ENCOUNTER → 2021-09-28 10:27 | Outpatient (BNVA) | payer OTHER, MEDICAID, SELFPAY | PROVIDERS: Visit Provider Physician Assistant | DX: S42.202A Unspecified fracture of upper end of left humerus, initial encounter for closed fracture (principal) | CPT/HCPCS: 99202 ==

== ENCOUNTER 2021-11-09 12:46 | Outpatient (REF) | payer OTHER, MEDICAID, SELFPAY ==
--- NOTE | ~2021-11-09 | XR_ITS ---
EXAMINATION: XR SHOULDER, LEFT CLINICAL INFORMATION: Pain left shoulder. COMPARISON: Left shoulder 09/19/2021 TECHNIQUE: AP external rotation, Grashey, scapular Y, and axillary views of the left shoulder. FINDINGS: Again visualized is a minimally displaced comminuted fracture of the humeral neck but no dislocation. The fracture extends to the greater tuberosity. Rest the visualized left shoulder, AC joint and the soft tissues are normal. XR/XR shoulder LT min 2V IMPRESSION: Stable comminuted fracture of the left humeral neck compared to 09/19/2021. There is no dislocation.
== END 2021-11-09 12:47 | disposition home or self-care (01) ==
LOC: HO.HOSX 12:46
PROVIDERS: Visit Provider Physician Assistant
DX: M25.512 Pain in left shoulder (principal)
CPT/HCPCS: 73030

== ENCOUNTER 2021-11-29 09:00 | Outpatient (RCR) | payer OTHER, MEDICAID, SELFPAY ==
--- NOTE | 2021-11-20 11:58 | MHC.PT.EP ---
[facility] [place] [facility] [place] [facility] [place] [facility] [address] [phone] F: [phone] F: [phone] F: [phone] F: [phone] Physical Therapy Plan of Care Date of Evaluation: Date of Surgery: n/a Diagnosis: L prox humeral fracture Assessment: Patient is a 56 year old R handed female who presents with s/s consistent with L shoulder pain, L proximal humerus fracture. She does not work but does enjoy being active. Patient past medical history includes rib fixation with hardware and fibromyalgia. Current impairments include pain, posture, ROM, strength, activity tolerance and functional mobility. Functional limitations include decreased ability to use LUE for all activities as well as sleeping. Patient is motivated with good rehab potential. Skilled PT will address impairments and functional limitations in order to achieve goals. 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 Manual therapy to restore motion and function. Therapeutic exercise to improve strength and flexibility. Neuromuscular re-education for posture and balance. Therapeutic activities to return to functional activities of daily living. Electronically signed by: Rk Salomon, DEVIN Please sign and return to therapist. Thank you for your referral.
--- NOTE | 2022-01-10 09:19 | MHC.PT.DC ---
[facility] [place] Office [place] [facility] [place] [facility] [address] Uzma Hare [address] [phone] F: [phone] F: [phone] F: [phone] F: [phone] Physical Therapy Discharge Report Diagnosis: L prox humeral fracture Date of Surgery: n/a Date of Evaluation: 11/20/21 Date of Discharge: 12/11/21 Treatments to Date: 3 Cancellations to Date: No Shows to Date: Discharge Status: Patient Elected to Stop Recommend MD Follow-up Discharge Summary: Pt sustained fall and re-injury and had to stop PT. 11/29/21: still limited by pain. we have been working ROM/AAROM today. added rows with no adverse reactions. 11/22/21: pt progressing with activity tolerance but not without pain as a significant factor of limitation. continue to progress ROM as tolerated. Patient is a 56 year old R handed female who presents with s/s consistent with L shoulder pain, L proximal humerus fracture. She does not work but does enjoy being active. Patient past medical history includes rib fixation with hardware and fibromyalgia. Current impairments include pain, posture, ROM, strength, activity tolerance and functional mobility. Functional limitations include decreased ability to use LUE for all activities as well as sleeping. Patient is motivated with good rehab potential. Skilled PT will address impairments and functional limitations in order to achieve goals. Electronically signed by: Rk Salomon, PT Please sign and return to therapist. Thank you for your referral.
== END 2022-01-10 09:20 | disposition home or self-care (01) ==
LOC: HO.PTCHIC 09:00
PROVIDERS: Visit Provider Physician Assistant
DX: S42.202A Unspecified fracture of upper end of left humerus, initial encounter for closed fracture (principal)
CPT/HCPCS: 97110; 97140; 97162

== ENCOUNTER 2021-12-03 09:54 | Outpatient (REF) | payer MEDICARE, MEDICAID, SELFPAY ==
--- NOTE | ~2021-12-03 | XR_ITS ---
EXAMINATION: XR SHOULDER, LEFT CLINICAL INFORMATION: Left shoulder pain. COMPARISON: Left shoulder radiographs dated 11/09/2021. TECHNIQUE: Two views of the left shoulder. FINDINGS: There is a persistent, mildly displaced and impacted left humeral surgical neck fracture with minimal interval increase in sclerosis. The left glenohumeral and acromio clavicular joints are unchanged. The visualized left ribs are intact. The soft tissues are unremarkable. XR/XR shoulder LT min 2V IMPRESSION: Left humeral surgical neck fracture with evidence for minimal interval healing.
== END 2021-12-03 09:55 | disposition home or self-care (01) ==
LOC: HO.HMGCX 09:54
PROVIDERS: Visit Provider Physician Assistant
DX: Z13.89 Encounter for screening for other disorder (principal)
CPT/HCPCS: 73030

== ENCOUNTER 2021-12-03 10:37 | Emergency (ER) | payer OTHER, MEDICAID, SELFPAY ==
[2021-12-03 10:41] VITALS: BP 122/71; PULSE 75; RESP 18; TEMP 36.6; O2SAT 98; BMI 29.9
--- NOTE | 2021-12-03 15:51 | ED_ITS ---
HPI - Extremity Problem General Chief complaint: Extremity Injury, Upper Stated complaint: fracture shoulder due to inj 09/30/21 Time Seen by Provider: 12/03/21 10:40 Source: patient Mode of arrival: ambulatory History of Present Illness HPI Narrative: 56-year-old female with a past medical history of left humeral fracture in September 2021, presenting to ED today sent in by urgent care for worsening fracture with mild displacement s/p recurrent fall on Friday. Patient reports tripped and fell landing on shoulder, denies symptoms prior to fall including headache, lightheadedness/dizziness, CP/SOB. Denies head trauma or LOC. denies numb ness/tingling. MD Complaint: extremity pain and joint pain Onset (ago): day(s) Pain Consistency: constant Related Data Home Medications Medication Instructions Recorded Confirmed aripiprazole 2 mg tablet 2 mg PO QAM 09/28/21 duloxetine 60 mg capsule,delayed 120 mg PO DAILY 09/28/21 release pregabalin 300 mg capsule 300 mg PO BID 09/28/21 quetiapine 300 mg tablet,extended 300 mg PO BEDTIME 09/28/21 release 24 hr Previous Rx's Medication Instructions Recorded ibuprofen 400 mg tablet 400 mg PO Q6H PRN pain #30 tabs 10/28/20 ibuprofen 800 mg tablet 800 mg PO Q8H PRN pain 14 days #42 08/16/21 tabs ketorolac 10 mg tablet 10 mg PO Q6H 30 days #120 tabs 10/05/21 oxycodone 5 mg tablet 5 mg PO ONCE PRN pain 7 days #7 11/23/21 tabs hydrocodone 5 mg-acetaminophen 325 1 tab PO Q6H PRN pain #9 tabs 12/03/21 mg tablet ibuprofen 800 mg tablet 800 mg PO Q8H PRN pain #14 tabs 12/03/21 Allergies Allergy/AdvReac Type Severity Reaction Status Date / Time ondansetron [From ZOFRAN] Allergy Unknown MAKES HER Verified 12/03/21 09:42 SICK Penicillins [PENICILLINS] Allergy Unknown RASH Verified 12/03/21 09:42 trazodone Allergy Hallucinati Verified 12/03/21 09:42 ons Review of Systems Review of Systems: Constitutional: No Weight loss, No Fever, No Chills ENT/Mouth: No Ear Pain, No Nasal Congestion, No Sinus Pain, No Hoarseness, No sore throat, No Rhinorrhea, No Swallowing Difficulty Cardiovascular: No Chest Pain, No SOB Respiratory: No Cough, No Sputum, No Wheezing Gastrointestinal: No Nausea, No Vomiting, No Diarrhea, No Constipation, No Abdominal pain Genitourinary: No Dysuria, No Urinary Frequency, No Hematuria Musculoskeletal: + joint pain, No Myalgias, + Joint Swelling Skin: No Skin Lesions, No rash Neuro: No Weakness, No Numbness, No Paresthesias, no head trauma, no LOC Yes all other systems are reviewed and are negative Constitutional: Constitutional: Reports as per [facility] Past Medical History Attestation statement: The following information was validated with the patient. 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 Physical Exam 2 Vital Signs: Vital Signs: Last Vital Signs Temp 98 F 12/03/21 10:41 Pulse 75 12/03/21 10:41 Resp 18 12/03/21 10:41 BP 122/71 12/03/21 10:41 Pulse Ox 98 12/03/21 10:41 O2 Del Method 12/03/21 10:41 BMI result Body Mass Index 29.9 Const: General: cooperative, healthy appearing and no acute distress Orientation/consciousness: patient oriented x3 Limitations: no limitations HEENT: Head: Yes normal to inspection and Yes atraumatic Ears: hearing grossly normal bilaterally General nose exam: Normal external nose present Face and sinus: Yes normal facial exam Eyes: General: appearance normal, both eyes and all related structures EOM: EOMs intact bilaterally Neck: Neck: Yes normal visual inspection and Yes no meningeal signs Resp: Effort & Inspection: normal respiratory effort and no respiratory distress Cardio: Rate: regular rate Heart sounds: S1 normal heart sound present and S2 normal heart sound present Peripheral pulses: radial pulses present and ulnar radial pulses present Skin: Rashes: no rashes Wounds: no wounds Neuro: General: patient oriented x3, tone normal and no meningeal signs Gait exam (Neuro): Normal gait present Extrem: Other: Left shoulder/clavicle tender to palpation. No appreciable deformity. Decreased ROM secondary to pain. Elbow/forearm/wrist/hand nontender. Neurovascularly intact distally. Course Course Course Narrative: -[id number]--spoke with Dr. Smith, plan is for sling in orthopedic follow-up MDM - Extremity (Nontraumatic) MDM Narrative Medical decision making narrative: 56-year-old female with a past medical history of left humeral fracture in September 2021, presenting to ED today sent in by urgent care for worsening fracture with mild displacement s/p recurrent fall on Friday. On exam patient upset/irritated, tearful, x-rays from earlier today showing left humeral surgical neck fracture with mild displacement and impaction. Patient presented to ED with sling. Per chart review to Urgent Care spoke with orthopedic office, will touch base with on-call orthopedist Dr. Smith Plan: Sling, pain control, orthopedic follow-up Medical Records Attestation: I reviewed the patient's medical records. Lab Data Attestation: I reviewed the patient's lab results. Discharge Plan Discharge Clinical Impression: Left humeral fracture Patient Disposition: Home, Self-Care Instructions: Arm Fracture in Adults (ED), How to Use a Sling (ED) Additional Instructions: You worsened your fracture of her left shoulder. Wear sling at home. Ice and elevate [place] is no opiate pain medication, take only when pain is severe for the next [address], drink alcohol, or operate machinery while taking it In addition take ibuprofen with food Be aware [place] has Tylenol mixed in, do not exceed 4 g of Tylenol in 1 day YOU NEED TO FOLLOW-UP WITH THE MASSAGE THERAPIST, CALL TO MAKE AN APPOINTMENT IN 1 WEEK Prescriptions: New ibuprofen 800 mg tablet 800 mg PO Q8H PRN (Reason: pain) Qty: 14 0RF hydrocodone-acetaminophen 5-325 mg tablet 1 tab PO Q6H PRN (Reason: pain) Qty: 9 0RF Rx Instructions: Partial Fill upon patient request. No Action ketorolac 10 mg tablet 10 mg PO Q6H 30 Days Qty: 120 0RF oxycodone 5 mg tablet 5 mg PO ONCE PRN (Reason: pain) 7 Days Qty: 7 0RF ibuprofen 400 mg tablet 400 mg PO Q6H PRN (Reason: pain) Qty: 30 0RF ibuprofen 800 mg tablet 800 mg PO Q8H PRN (Reason: pain) 14 Days Qty: 42 0RF pregabalin 300 mg capsule 300 mg PO BID duloxetine 60 mg capsule,delayed release(DR/EC) 120 mg PO DAILY quetiapine 300 mg tablet extended release 24 hr 300 mg PO BEDTIME aripiprazole 2 mg tablet 2 mg PO [facility] Referrals: Sukhjinder Smith MD [Physician] - 1 week
[2021-12-03 16:13] VITALS: BP 118/65; PULSE 65; RESP 18; O2SAT 97
[2021-12-03] MEDS: oxyCODONE HCl Immed Release 5 MG TABLET PO (16:16)
[2021-12-03] MEDS: Ketorolac Tromethamine 30 MG/ML VIAL IM (16:19)
== END 2021-12-03 16:29 | disposition home or self-care (01) ==
PROVIDERS: Emergency Provider Emergency Medicine
DX: S42.212G Unspecified displaced fracture of surgical neck of left humerus, subsequent encounter for fracture with delayed healing (principal); W01.0XXD Fall on same level from slipping, tripping and stumbling without subsequent striking against object, subsequent encounter; Z91.81 History of falling; M25.512 Pain in left shoulder
CPT/HCPCS: 73030; 96372; 99283; 99284; J1885

== ENCOUNTER → 2022-02-04 09:58 | Outpatient (REF) | payer OTHER, MEDICAID, SELFPAY ==
--- NOTE | 2022-02-04 10:05 | CA_ITS ---
Transthoracic Echocardiogram Patient (Last, First, Middle): Epmeratriz Randhawa, Gender: Female Date of : 1965 Age: 56 Procedure Date: 02/04/2022 Procedure Type: Transthoracic Echocardiogram Location: OP Height: 165.1 cm Weight: 81.65 kg BSA: 1.89 m2 Heart Rate: 64 bpm BP: 118 / 62 mmHg [employer] Attendant: SB Referring MD: Alok Raya MD Symptoms: Z01.818 PRE OP Study Quality: Fair/Contrast/Restricted mobility ECG Rhythm: Sinus Conclusions: - The left ventricular systolic function is normal. The calculated ejection fraction is 66% by biplane method. - No obvious valvular pathology seen on this study. Findings Procedure Information Contrast agent, definity, is being given per protocol without apparent complications. Left Ventricle Normal left ventricular cavity size. There is normal left ventricular wall thickness. The left ventricular systolic function is normal. The calculated ejection fraction is 66% by biplane method. There is no evidence of regional wall motion abnormalities. Diastolic function is normal for age. Right Ventricle Normal right ventricular cavity size and systolic function. Atria Both atria are normal in size. Aortic Valve There is a normal trileaflet aortic valve. There is no aortic valve stenosis. There is no aortic valve regurgitation. Mitral Valve The mitral valve appears normal. There is no mitral valve regurgitation. There is no mitral valve stenosis. Pulmonic Valve The pulmonic valve is likely normal. Tricuspid Valve Normal tricuspid valve structure. There is trace tricuspid valve regurgitation. There is no evidence of pulmonary hypertension. Great Vessels The asc aorta is normal in size. Venous The inferior vena cava is normal in size and collapses greater than 50% with inspiration. Pericardium/Pleural There is no evidence of pericardial effusion. Prior Study Comparison No prior study available for comparison. Recommendations, Care & Conclusions No obvious valvular pathology seen on this study. Measurements 2D Linear Measurements IVSd: 0.81 0.6-0.9/0.6-1.0 cm LVIDd: 5.04 3.9-5.3/4.2-5.9 cm LVIDd Index: 2.67 2.4-3.2/2.2-3.1 cm/m2 LVIDs: 3.56 2.0-3.6 cm LVPWd: 0.86 0.7-1.1 cm LA Diam: 4.10 2.7-3.8/3.0-4.0 cm LAIDs Index: 2.17 1.5-2.3 cm/m2 LV Mass: 180.63 67-162/88-224 g LV Mass Index: 95.57 43-95/49-115 g/m2 LVOT Diam: 2.10 3.0+(-)1.3 cm 2D Systolic Function EF 4C: 72.50 >55% EF 2C: 62.20 >55% EF BiP: 66.40 >55% Mitral Valve MV Pk E: 0.97 MV PK A: 0.69 MV Decel Time: 184.00 E/A: 1.40 E'Lateral: 7.94 E'Medial: 9.25 E/E' Med: 10.50 E/E' Lat: 12.30 PHT: 54.00 MVA PHT: 4.07 Decel [place]: 5.29 Aortic Valve AoV Pk Naveen: 1.35 AoV Mn Naveen: 0.88 AoV VTI: 0.28 AoV Pk Grad: 7.00 Aov Mn Grad: 4.00 POLLO Cont.VTI: 3.29 LVOT LVOT Pk [place]aveen: 1.13 LVOT Mn [place]aveen: 0.80 LVOT VTI: 0.27 LVOT Pk Grad: 5.00 LVOT Mn Grad: 3.00 LVOT Diam: 2.10 LVOT Area: 3.46 Diastolic Function MV Pk E: 0.97 MV Pk A: 0.69 E/A: 1.40 E'Medial: 9.25 E/E' Med: 10.50 E' Laterial: 7.94 E/E' Lat: 12.30 Right Ventricle TAPSE (mm): 20.30 TVS' Naveen: 9.79 Tricuspid Valve RA Press: 3.00 Great Vessels Aorta Sinus of Valsalva: 3.30 2.0-3.5 cm Ao Asc: 2.80 2.1-3.4 cm Pulmonary Veins Pulm Vein S/D 1.10 Pulmonary Valve PV Pk Naveen: 0.73 Peak PV Grad: 2.00 Updated in Other Vendor System with Status of Final Yousuf Hannon MD electronically signed on 02/04/2022 12:46:16 PM with status of Final
== END ==
LOC: HO.CARD 09:58
PROVIDERS: Visit Provider Thoracic Surgery (Cardiothoracic Vascular Surgery)
DX: Z01.818 Encounter for other preprocedural examination (principal); S22.31XK Fracture of one rib, right side, subsequent encounter for fracture with nonunion
CPT/HCPCS: 93306; Q9957

== ENCOUNTER 2023-04-21 09:26 | Emergency (ER) | payer MEDICARE, MEDICAID, SELFPAY ==
[2023-04-21 09:37] VITALS: BP 113/51; PULSE 75; RESP 20; TEMP 36.2; O2SAT 95; BMI 36.5
--- NOTE | 2023-04-21 14:37 | ED_ITS ---
HPI - General Adult General Chief complaint: General Medical Stated complaint: Cyst on lower back Time Seen by Provider: 04/21/23 14:36 Source: patient Mode of arrival: ambulatory Limitations: no limitations History of Present Illness HPI narrative: Patient is a 57-year-old female with history of fibromyalgia and dystonia presenting to the emergency department with complaint of acute worsening of chronic low back pain. 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 Has appointment with [facility] neurosurgery on 05/06/23, but reports that over the weekend the pain has become unbearable. Was previously taking ibuprofen and Tramadol which was making the pain manageable, but now pain is radiating down bilateral legs. Denies any new weakness or numbness to lower extremities. Denies any saddle anesthesia or bowel or bladder incontinence. Denies fevers. MD complaint: back pain Onset (ago): day(s) Location: back Radiation: extremity Severity: severe Quality: burning Pain Consistency: constant Relieving factors: none Exacerbating factors: movement Associated symptoms: denies other symptoms Treatments prior to arrival: NSAID and other Related Data Home Medications Medication Instructions Recorded Confirmed aripiprazole 2 mg tablet 2 mg PO QAM 09/28/21 duloxetine 60 mg capsule,delayed 120 mg PO DAILY 09/28/21 release pregabalin 300 mg capsule 300 mg PO BID 09/28/21 quetiapine 300 mg tablet,extended 300 mg PO BEDTIME 09/28/21 release 24 hr Previous Rx's Medication Instructions Recorded ibuprofen 400 mg tablet 400 mg PO Q6H PRN pain #30 tabs 10/28/20 ibuprofen 800 mg tablet 800 mg PO Q8H PRN pain 14 days #42 08/16/21 tabs ketorolac 10 mg tablet 10 mg PO Q6H 30 days #120 tabs 10/05/21 oxycodone 5 mg tablet 5 mg PO ONCE PRN pain 7 days #7 11/23/21 tabs hydrocodone 5 mg-acetaminophen 325 1 tab PO Q6H PRN pain #9 tabs 12/03/21 mg tablet ibuprofen 800 mg tablet 800 mg PO Q8H PRN pain #14 tabs 12/03/21 lidocaine 5 % topical patch 1 patch topical DAILY #15 ea 04/21/23 oxycodone 5 mg tablet 5 mg PO Q8H PRN pain #9 tabs 04/21/23 Allergies Allergy/AdvReac Type Severity Reaction Status Date / Time ondansetron [From ZOFRAN] Allergy Unknown MAKES HER Verified 04/21/23 09:40 SICK Penicillins [PENICILLINS] Allergy Unknown RASH Verified 04/21/23 09:40 trazodone Allergy Hallucinati Verified 04/21/23 09:40 ons Review of Systems Review of Systems: As per HPI. Yes all other systems are reviewed and are negative Constitutional: Constitutional: Reports as per HPI [facility] Past Medical History Onset Date is defined in the Problem List Problems that require an onset date and time if occurred within 24 hrs of arrival to the ED Aortic Dissection and Rupture; Neurologic impairment; Cardiopulmonary Arrest; Endotracheal Intubation; Insertion or Replacement of Mechanical Circulatory Assist Device Medical History (Updated 04/21/23 @ 14:56 by Latosha Patton NP) Dystonia Fibromyalgia Surgical History Hx of cholecystectomy History of left oophorectomy Social History Social History (Updated 09/28/21 @ 10:44 by TEZ Caballero) Alcohol intake: never Patient Tobacco Use Status: Current everyday Tobacco user Advance Directives: No Advance Directives Information Provided: No Current occupational status: unemployed 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 Blood pressure normal. Heart rate normal. Respiratory rate normal. Temperature normal. Oxygen saturation normal. Const General: cooperative, healthy appearing and no acute distress Orientation/consciousness: oriented to person, oriented to place, oriented to time and patient oriented x3 Limitations: no limitations HENMT Head: Yes normocephalic and Yes atraumatic Ears: external ears normal General nose exam: Normal external nose present Face and sinus: Yes face symmetric Mouth: oropharynx normal and moist mucous membranes Throat: Yes uvula midline Eyes Pupils: Equal, round and reactive pupils present Neck Neck: Yes normal visual inspection, Yes no meningeal signs and Yes supple Resp Effort & Inspection: normal respiratory effort and able to speak in complete sentences Auscultation: clear to auscultation bilaterally Cardio Rate: regular rate Rhythm: regular rhythm Heart sounds: S1 normal heart sound present and S2 normal heart sound present GI Palpation (GI): Soft to palpation and nontender Auscultation: normoactive bowel sounds General: Yes no CVA tenderness Back/Spine/Pelvis Back: no CVA tenderness Thoracic/Lumbar Spine: thoracic and lumbar spine normal to inspection, thoraco- lumbar ROM normal, straight leg raise negative bilaterally, pain with thoraco- lumbar ROM, No thoracic spinal tenderness and No lumbar spinal tenderness Pelvis: no pain with anterior-posterior compression and no pain with lateral compression Sacrum: tenderness Coccyx: Coccyx tenderness present Skin General skin exam: elasticity normal and turgor normal Neuro General: oriented to person, oriented to place, oriented to time, patient oriented x3, gait normal, tone normal, moves all extremities, Normal light touch and pain sensation, no meningeal signs, no focal motor deficits, CN's II-XI intact bilaterally and deep tendon reflexes 2+ bilaterally Cranial nerves: Yes Equal, round and reactive pupils present Cognition (Neuro): normal cognition Motor exam (neuro): 5/5 motor strength present throughout, Normal motor muscle tone present throughout and Motor abnormalities not present Extrem General: Yes full ROM, Yes no pedal edema and Yes no calf tenderness Psych Mental Status: mental status grossly normal Affect: normal affect Thought process: Normal thought process present Medical Decision Making Medical Decision Making [facility] Narrative: Patient is a 57-year-old female with history of fibromyalgia and dystonia presenting to the emergency department with complaint of acute worsening of chronic low back pain. On exam patient is awake, A+Ox3, VS WNL, afebrile, normal neurological exam without focal deficits, physical exam findings as above. Given reported symptoms and physical exam findings, initial differential includes acute on chronic back pain. No red flag findings concerning for cauda equina, cord compression, spinal epidural abscess. CUSTOMER RESPONSE REPRESENTATIVE reviewed, no concerning findings. Will prescribe short course of oxycodone for severe pain, as well as topical lidocaine patches. Instructed patient to contact neurosurgery office tomorrow morning to notify them of her change in symptoms. Return precautions discussed at bedside. Patient verbalized understanding of and agreement with plan. Differential Diagnosis Differential Diagnoses: The differential diagnosis associated with the presentation includes As per [facility] External Record Review External record reviewed: Inpatient record, Office record and Outpatient record Prescription Management I considered prescription management with: Pain Medication Discharge Plan Discharge Clinical Impression: Acute exacerbation of chronic low back pain Patient Disposition: Home, Self-Care Instructions: Opioid Safety (ED) Additional Instructions: You were evaluated in the emergency department today for back pain. Your evaluation did not show signs of medical conditions requiring emergent intervention at this time. We recommended that you use ibuprofen or Tylenol per package directions every 6 hours as needed for pain. If necessary, you can alternate these medications so that you take one medication every 3 hours. For instance, at noon take ibuprofen, then at 3:00 p.m. take Tylenol, then at 6:00 p.m. take ibuprofen. You have been prescribed a short course oxycodone for severe pain. Do not take oxycodone and tramadol at the same time. You have also been prescribed 5% topical lidocaine patches which you can wear for up to 12 hours in a 24 hour period. Do not apply heat directly over the patches. Pl ease call the Neurosurgery office 1st thing tomorrow morning to notify them of your change in symptoms. Please schedule an appointment for follow-up with your primary care physician this week for further evaluation of your symptoms. Return to the emergency department if you experience worsening back pain, difficulty walking, fevers, new weakness, numbness, tingling, incontinence, groin numbness or tingling, or any other concerning symptoms. Prescriptions: New lidocaine 5 % adhesive patch,medicated 1 patch topical DAILY Qty: 15 0RF Rx Instructions: leave on most painful area for up to 12 hrs oxycodone 5 mg tablet 5 mg PO Q8H PRN (Reason: pain) Qty: 9 0RF Rx Instructions: Partial Fill upon patient request. No Action ketorolac 10 mg tablet 10 mg PO Q6H 30 Days Qty: 120 0RF oxycodone 5 mg tablet 5 mg PO ONCE PRN (Reason: pain) 7 Days Qty: 7 0RF ibuprofen 400 mg tablet 400 mg PO Q6H PRN (Reason: pain) Qty: 30 0RF ibuprofen 800 mg tablet 800 mg PO Q8H PRN (Reason: pain) Qty: 14 0RF hydrocodone-acetaminophen 5-325 mg tablet 1 tab PO Q6H PRN (Reason: pain) Qty: 9 0RF Rx Instructions: Partial Fill upon patient request. ibuprofen 800 mg tablet 800 mg PO Q8H PRN (Reason: pain) 14 Days Qty: 42 0RF pregabalin 300 mg capsule 300 mg PO BID duloxetine 60 mg capsule,delayed release(DR/EC) 120 mg PO DAILY quetiapine 300 mg tablet extended release 24 hr 300 mg PO BEDTIME aripiprazole 2 mg tablet 2 mg PO QAM
[2023-04-21] MEDS: oxyCODONE HCl Immed Release 5 MG TABLET PO (14:57)
[2023-04-21 15:10] VITALS: BP 122/63; PULSE 69; RESP 14; O2SAT 96
== END 2023-04-21 15:13 | disposition home or self-care (01) ==
PROVIDERS: Emergency Provider Emergency Medicine; PCP Nurse Practitioner Adult Health
DX: M54.50 Low back pain, unspecified (principal); G89.29 Other chronic pain; Z79.899 Other long term (current) drug therapy; F17.200 Nicotine dependence, unspecified, uncomplicated
CPT/HCPCS: 99283; 99284

== ENCOUNTER 2025-03-04 12:51 | Outpatient (AMB) | payer MEDICARE, MEDICAID, SELFPAY ==
--- NOTE | 2025-03-04 12:56 | HO.SPINEOV ---
Vital Signs 03/04/25 13:00 Height 5 ft 5 in Weight 224 lb BMI 37.3 Intake Visit Reasons: LBP Intake Note: Ms. Randhawa is here today c/o low back pain. MRI done at [facility]. Picker Tender Required: No Allergies ondansetron (From ZOFRAN) Allergy (Unknown, Verified 03/04/25 13:01) MAKES HER SICK Penicillins (PENICILLINS) Allergy (Unknown, Verified 03/04/25 13:01) RASH trazodone Allergy (Verified 03/04/25 13:01) Hallucinations Physical Exam Vital Signs: BMI result Body Mass Index 37.3 Assessment & Plan Assessment & Plan (1) Back pain: Code(s): M54.9 - Dorsalgia, unspecified Category: Medical Plan Dear Madeleine Thank you for referring [] to our office today. This is a very nice 59-year-old female who presents for evaluation of 2nd opinion on surgery that was done at [facility] by Dr. Herrmann in October of 2023. The patient presented with back pain and bilateral lower extremity pain at that time, underwent a right-sided approach for transforaminal lumbar interbody fusion. She was told the procedure went well, she had significant improvement if not complete relief of her bilateral lower extremity pain after surgery but the back pain has persisted. It feels exactly like it was at the time of surgery. She went back to see him in follow up and was told that she should do physical therapy and cortisone injections but that there was nothing more that could be done surgically. She comes in today for a 2nd opinion on her imaging and clinical situation. PMH: History of depression, osteoporosis, repair of a rib fracture, cholecystectomy, lumbar fusion Social hx: She smokes cigarettes and uses marijuana daily, does not drink any alcohol Medications: Please see the [employer] list Allergies: Please see the [employer] list Physical exam: Awake alert oriented no acute distress, patient is able to stand up out of a chair on her own. She has well healed scars on her lower lumbar spine. Lower extremity exam reveals full strength, 3+ patellar reflexes, absent Achilles reflexes. Imaging review: There is a lumbar MRIs well as lumbar CT done at [facility] showing evidence of transforaminal lumbar interbody fusion at L4-5. Pedicle screws and interbody cage appear to be an adequate placement. There does appear to be evidence of fusion across the interbody cage. There is some kind of bone material, likely artificial bone graft it looks like that is along the track of the cage placement through the transforaminal approach. Impression: 59-year-old female presents for evaluation of back pain that it did not go away after L4-5 fusion surgery. Thankfully her lower extremity pain did go away, but the back pain persists. Dr. Herrmann told the patient there is nothing more he can do for her. Dr. Goncalves and I reviewed the CT and MRI and it shows good placement of the hardware with no obvious complications. Unfortunately she falls in that small percentage group of patients who do not improve after back surgery. Unfortunately we have nothing to offer her either. Thank you for allowing us to care for your patient. The total time spent with this visit with this patient was 45 minutes reviewing history, physical exam, lumbar imaging review, and implementation of treatment plan or further diagnostic testing Alok Goncalves MD,PhD [facility] Coding Level of Care Code New Pt Level 4 (77101) Diagnoses Back pain M54.9
[2025-03-04 13:00] VITALS: BMI 37.3
== END 2025-03-04 13:44 | disposition home or self-care (01) ==
LOC: HO.HNS 12:52
PROVIDERS: PCP Nurse Practitioner Adult Health; Referring Provider Nurse Practitioner Adult Health; Visit Provider Physician Assistant
DX: M54.9 Dorsalgia, unspecified (principal)
CPT/HCPCS: 99204

== ENCOUNTER → 2025-03-04 12:51 | Outpatient (BNVA) | payer MEDICARE, MEDICAID, SELFPAY | PROVIDERS: PCP Nurse Practitioner Adult Health; Referring Provider Nurse Practitioner Adult Health; Visit Provider Physician Assistant | DX: M54.50 Low back pain, unspecified (principal); Z72.0 Tobacco use | CPT/HCPCS: 99202 ==